=== PATIENT | female | born 2000 | race Caucasian/White ===

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

== ENCOUNTER 2021-07-20 02:33 | Emergency (ER) | payer OTHER ==
[~2021-07-20] VITALS: Ht 160 cm; Wt 56.6 kg
[~2021-07-20 02:33] MED LIST changes: +HYOS0.1283 SL; +ONDA4TAB8 PO
[2021-07-20 04:28] LABS: BASOPHILS # (AUTO) 0.1 10^3/uL (0.0-0.1); HEMOGLOBIN 11.2 g/dL (11.5-16.0); MEAN CORPUSCULAR HGB CONC 32 g/dL (32-36); NEUTROPHILS % (AUTO) 67 % (42-75)
[2021-07-20 04:29] LABS: BASOPHILS % (AUTO) 1 % (0-10); EOSINOPHILS # (AUTO) 0.1 10^3/uL (0.0-0.3); EOSINOPHILS % (AUTO) 1 % (0-10); HEMATOCRIT 36 % (35-52); LYMPHOCYTES # (AUTO) 1.9 10^3/uL (1.0-4.0); LYMPHOCYTES % (AUTO) 21 % (12-44); MEAN CORPUSCULAR HEMOGLOBIN 20 pg (25-34); MEAN CORPUSCULAR VOLUME 65 fL (80-99); MONOCYTES # (AUTO) 0.9 10^3/uL (0.0-1.0); MONOCYTES % (AUTO) 10 % (0-12); NEUTROPHILS # (AUTO) 6.3 10^3/uL (1.8-7.8); PLATELET COUNT 170 10^3/uL (130-400); WHITE BLOOD COUNT 9.3 10^3/uL (4.3-11.0)
[2021-07-20 04:30] LABS: ALBUMIN 4.5 GM/DL (3.2-4.5); POTASSIUM 4.2 MMOL/L (3.6-5.0)
[2021-07-20 04:31] LABS: CALCIUM 9.5 MG/DL (8.5-10.1)
[2021-07-20 04:33] LABS: TOTAL PROTEIN 7.2 GM/DL (6.4-8.2)
[2021-07-20 04:34] LABS: BILIRUBIN,TOTAL 0.9 MG/DL (0.1-1.0)
[2021-07-20 04:36] LABS: CREATININE SERUM 0.74 MG/DL (0.60-1.30)
[2021-07-20 04:40] LABS: BILIRUBIN,URINE NEGATIVE (NEGATIVE); CLARITY,URINE SL CLOUDY; COLOR,URINE YELLOW; GLUCOSE, URINE (UA) NEGATIVE (NEGATIVE); KETONES,URINE NEGATIVE (NEGATIVE); LEUKOCYTE ESTERASE ,URINE NEGATIVE (NEGATIVE); NITRITE,URINE NEGATIVE (NEGATIVE); PROTEIN,URINE NEGATIVE (NEGATIVE)
[2021-07-20 04:46] LABS: BACTERIA,URINE TRACE /HPF; WBC,URINE 0-2 /HPF
[2021-07-20] MEDS ORDERED: ONDANSETRON 4 MG/2 ML (SDV) Z0FRAN IVP ONE ×2 (05:15→08:30)
[2021-07-20] MEDS ORDERED: ANTACID SUSP 30 ML UDC (MYLANTA) PO ONE (05:15)
[2021-07-20] MEDS ORDERED: LIDOCAINE 2% VISCOUS 15 ML UDC PO ONE (05:15)
--- NOTE | 2021-07-20 05:44 | ED Abdominal Pain ---
General Chief Complaint: Abdominal/GI Problems Stated Complaint: GALLBLADDER PAIN & BACK PAIN Nursing Triage Note: Pt arrives per POV w/ parent w/ c/o upper epigastric pain that started @ approximately 0030 this morning. Pt also c/o nausea. Source of Information: Patient Exam Limitations: No Limitations (MELLISA LONGORIA MD) History of Present Illness Date Seen by Provider: Jul 20, 2021 Time Seen by Provider: 04:16 Initial Comments This 20-year-old young lady presents to the emergency room with complaints of epigastric pain that radiates to her right upper back. She has been having intermittent episodes for about a year. She has associated nausea. She most recently developed an episode of this pain after eating a cheeseburger last night. She denies constipation or diarrhea. She did try taking Tums when her pain started tonight but it did not help. She reports pain presently as 4 out of 10. She denies any urinary or vaginal symptoms. Her primary care is the [facility]. Symptoms seem to be exacerbated by fatty or greasy foods . (MELLISA LONGORIA MD) Allergies and Home Medications Allergies Coded Allergies: No Known Drug Allergies (Unverified , 02/25/13) Patient Home Medication List Home Medication List Reviewed: Yes (MELLISA LONGORIA MD) Azithromycin (Zithromax Tab) 250 Mg Tab, 250 MG PO DAILY, (Reported) Entered as Reported by: LAUREN ABDULLAHI on 02/07/141916 Benzonatate (Tessalon Perles) 100 Mg Capsule, 100 MG PO Q4H PRN for COUGH, (Reported) Entered as Reported by: LAUREN ABDULLAHI on 02/07/141916 Budesonide (Pulmicort Flexhaler) 90 Mcg Aer.pow.ba, 90 MCG IH BID, (Reported) Entered as Reported by: LAUREN ABDULLAHI on 02/07/141916 Hyoscyamine Sulfate (Levsin-Sl) 0.125 Mg Tab.subl, 1-2 TAB SL Q4H Prescribed by: MILIND IBANEZ on 05/27/172215 Ketorolac Tromethamine (Ketorolac Tromethamine) 10 Mg Tablet, 10 MG PO TID PRN for PAIN-BREAKTHROUGH Prescribed by: STACEY RUCKER on 07/20/21 0819 Ondansetron (Zofran Odt) 4 Mg Tab.rapdis, 4 MG PO Q4H Prescribed by: MILIND IBANEZ on 05/27/17 2216 Ondansetron (Ondansetron Odt) 4 Mg Tab.rapdis, 4 MG PO Q6H PRN for NAUSEA/VOMITING Prescribed by: STACEY RUCKER on 07/20/21 0819 Prednisone (Prednisone) 10 Mg Tablet, 30 MG PO BID, (Reported) Entered as Reported by: LAUREN ABDULLAHI on 02/07/141916 Review of Systems Review of Systems Constitutional: no symptoms reported EENTM: No Symptoms Reported Respiratory: No Symptoms Reported Cardiovascular: No Symptoms Reported Gastrointestinal: See HPI Genitourinary: No Symptoms Reported Musculoskeletal: no symptoms reported Skin: no symptoms reported Psychiatric/Neurological: No Symptoms Reported Endocrine: No Symptoms Reported Hematologic/Lymphatic: No Symptoms Reported (MELLISA LONGORIA MD) Past Uqmkgmi-Xzxvas-Psuqek Hx Patient Social History Tobacco Use?: No Substance use?: No Alcohol Use?: Yes Alcohol Frequency: Once in a while (MELLISA LONGORIA MD) Immunizations Up To Date Influenza Vaccine Up-to-Date: Yes; Up-to-Date First/Initial COVID19 Vaccinat: J&J (MELLISA LONGORIA MD) Past Medical History Surgeries: No Respiratory: No Cardiac: No Neurological: No Reproductive Disorders: No Female Reproductive Disorders: Denies Sexually Transmitted Disease: No Genitourinary: No Gastrointestinal: No Musculoskeletal: No Endocrine: No HEENT: No Cancer: No Psychosocial: No Integumentary: No Blood Disorders: No Adverse Reaction/Blood Tranf: No (MELLISA LONGORIA MD) Physical Exam Vital Signs Vital Signs - First Documented 07/20/21 03:19 Temp 36.6 Pulse 107 Resp 20 B/P (MAP) 126/84 (98) Pulse Ox 100 O2 Delivery Room Air (STACEY RUCKER) Vital Signs Capillary Refill : Less Than 3 Seconds (MELLISA LONGORIA MD) Height/Weight/BMI Height: 5'2.00" Weight: 108lbs. oz. 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, no motor/sensory deficits, alert, normal mood/affect, oriented x 3 Skin: normal color, warm/dry (MELLISA LONGORIA MD) Progress/Results/Core Measures Results/Orders Lab Results Laboratory Tests Test 07/20/21 03:45 07/20/21 03:48 Range/Units White Blood Count 9.3 4.3-11.0 10^3/uL Red Blood Count 5.49 H 3.80-5.11 10^6/uL Hemoglobin 11.2 L 11.5-16.0 g/dL Hematocrit 36 35-52 % Mean Corpuscular Volume 65 L 80-99 fL Mean Corpuscular Hemoglobin 20 L 25-34 pg Mean Corpuscular Hemoglobin Concent 32 32-36 g/dL Red Cell Distribution Width 15.1 H 10.0-14.5 % Platelet Count 170 130-400 10^3/uL Mean Platelet Volume 9.0-12.2 fL Immature Granulocyte % (Auto) 1 % Neutrophils (%) (Auto) 67 42-75 % Lymphocytes (%) (Auto) 21 12-44 % Monocytes (%) (Auto) 10 0-12 % Eosinophils (%) (Auto) 1 0-10 % Basophils (%) (Auto) 1 0-10 % Neutrophils # (Auto) 6.3 1.8-7.8 10^3/uL Lymphocytes # (Auto) 1.9 1.0-4.0 10^3/uL Monocytes # (Auto) 0.9 0.0-1.0 10^3/uL Eosinophils # (Auto) 0.1 0.0-0.3 10^3/uL Basophils # (Auto) 0.1 0.0-0.1 10^3/uL Immature Granulocyte # (Auto) 0.1 0.0-0.1 10^3/uL Percent Immature Platelet Fraction 16.5 H 0.0-7.6 % Sodium Level 139 135-145 MMOL/L Potassium Level 4.2 3.6-5.0 MMOL/L Chloride Level 108 H 98-107 MMOL/L Carbon Dioxide Level 18 L 21-32 MMOL/L Anion Gap 13 5-14 MMOL/L Blood Urea Nitrogen 9 7-18 MG/DL Creatinine 0.74 0.60-1.30 MG/DL Estimat Glomerular Filtration Rate 118 BUN/Creatinine Ratio 12 Glucose Level 105 70-105 MG/DL Calcium Level 9.5 8.5-10.1 MG/DL Corrected Calcium 9.1 8.5-10.1 MG/DL Total Bilirubin 0.9 0.1-1.0 MG/DL Aspartate Amino Transf (AST/SGOT) 19 5-34 U/L Alanine Aminotransferase (ALT/SGPT) 21 0-55 U/L Alkaline Phosphatase 56 40-136 U/L C-Reactive Protein High Sensitivity 0.27 0.00-0.50 MG/DL Total Protein 7.2 6.4-8.2 GM/DL Albumin 4.5 3.2-4.5 GM/DL Lipase 10 8-78 U/L Serum Test, Qualitative NEGATIVE NEGATIVE Urine Color YELLOW Urine Clarity SL CLOUDY Urine pH 6.0 5-9 Urine Specific [place] 1.020 1.016-1.022 Urine Protein NEGATIVE NEGATIVE Urine Glucose (UA) NEGATIVE NEGATIVE Urine Ketones NEGATIVE NEGATIVE Urine Nitrite NEGATIVE NEGATIVE Urine Bilirubin NEGATIVE NEGATIVE Urine Urobilinogen 0.2 < = 1.0 MG/DL Urine Leukocyte Esterase NEGATIVE NEGATIVE Urine RBC (Auto) NEGATIVE NEGATIVE Urine RBC NONE /HPF Urine WBC 0-2 /HPF Urine Squamous Epithelial Cells 2-5 /HPF Urine Crystals NONE /LPF Urine Bacteria TRACE /HPF Urine Casts NONE /LPF Urine Mucus NEGATIVE /LPF Urine Culture Indicated NO (STACEY RUCKER) My Orders Orders - STACEY RUCKER Ed Iv/Invasive Line Start (07/20/21 07:30) Ns Iv 500 Ml (Sodium Chloride 0.9%) (07/20/21 07:30) (STACEY RUCKER) Medications Given in ED Current Medications Medications Dose Ordered Sig/Ciro Route Start Time Stop Time Status Last Admin Dose Admin Al Hydrox/Mg Hydrox/Simethicone 30 ml ONCE ONCE PO 07/20/21 05:15 07/20/21 05:17 DC 07/20/21 05:30 30 ML Fentanyl Citrate 50 mcg ONCE ONCE IVP 07/20/21 06:15 07/20/21 06:16 DC 07/20/21 06:19 50 MCG Lidocaine HCl 15 ml ONCE ONCE PO 07/20/21 05:15 07/20/21 05:17 DC 07/20/21 05:31 15 ML Ondansetron HCl 4 mg ONCE ONCE IVP 07/20/21 05:15 07/20/21 05:17 DC 07/20/21 05:30 4 MG Sodium Chloride 500 ml @ 0 mls/hr Q0M ONCE IV 07/20/21 07:30 07/20/21 07:31 DC 07/20/21 07:39 500 MLS/HR (STACEY RUCKER) Vital Signs/I&O 07/20/21 03:19 Temp 36.6 Pulse 107 Resp 20 B/P (MAP) 126/84 (98) Pulse Ox 100 O2 Delivery Room Air (STACEY RUCKER) Blood Pressure Mean: 98 Progress Progress Note : Time: 06:17 Progress Note Lab work-up was unremarkable. Trial of GI cocktail did not improve her pain. Patient would like to proceed with a gallbladder ultrasound. This was ordered along with a dose of fentanyl to treat her pain in the meantime. Care is being transferred to Dr. Rucker at this time. (MELLISA LONGORIA MD) Progress Note #1: Progress Note Care of the patient assumed at shift change. Patient resting comfortably after her dose of fentanyl awaiting ultrasound. Last oral intake 1830 yesterday. 500 ml NS ordered to keep her NPO and address her thirst. Progress Note #2: Time: 07:59 Progress Note Reviewed case labs and ultrasound with Dr. SANDOVAL who agrees to follow the patient in the clinic. (STACEY RUCKER) Diagnostic Imaging Diagonstic Imaging: Ultrasound Plain Films/CT/US/NM/MRI: abdomen (GB) Comments No evidence of cholecystitis. Common bile duct normal. No evidence of cholelithiasis. No significant free fluid or inflammation surrounding the gallbladder. NAME: KELSI HERNANDEZ [facility] REC#: [id number] PT STATUS: REG ER : 2000 PHYSICIAN: MELLISA LONGORIA MD ADMIT DATE: 07/20/21/ER Signed Date of Exam:07/20/21 US GALLBLADDER [id number] PROCEDURE: US Gallbladder. TECHNIQUE: Multiple real-time grayscale images were obtained over the right upper quadrant in various projections. INDICATION: Epigastric pain. FINDINGS: Liver is normal in size. Hepatopetal flow in main portal vein. There is no biliary duct dilatation. Common bile duct measures 3 mm. There is no cholelithiasis, gallbladder wall thickening or pericholecystic fluid. The pancreas is unremarkable. Aorta is nonaneurysmal. IVC patent. Right kidney is normal. No ascites. IMPRESSION: Unremarkable right upper quadrant ultrasound. Dictated by: Dictated on workstation # [id number] Dict: 07/20/21800 Trans: 07/20/21813 CVB [id number] Interpreted by: SARA GILL MD Electronically signed by: SARA GILL MD 07/20/21813 Reviewed: Reviewed by Me (STACEY RUCKER) Departure Impression Primary Impression: Recurrent biliary colic Disposition: HOME, SELF-CARE Condition: Stable Departure-Patient Inst. Decision time for Depature: 07:59 (STACEY RUCKER) Referrals: MALLIKA SANDOVAL MD [facility] (PCP) Primary Care Physician Patient Instructions: Gallbladder Diet Add. Discharge Instructions: Your gallbladder does not appear infected nor do you have significant stones. It may certainly be the source of your symptoms. I encourage you to follow-up with Dr. SANDOVAL, general surgery in the clinic by calling for an appointment. He can review your findings and help you manage your symptoms as well as discuss po tential elective surgery if indicated. Try to avoid greasy, dairy, spicy foods. Stick to high-fiber foods as this will decrease your symptoms. Omeprazole 20 mg daily to help reduce stomach acid and reduce your symptoms intensity. Zofran 1 tablet every 6 hours as necessary for nausea and/or vomiting. Tylenol 1000 mg every 8 hours as needed for pain. Instead of ibuprofen or Aleve you may use the ketorolac 10 mg every 8 hours as needed for pain. Return to the ER for fever, intractable nausea/vomiting or pain. All discharge instructions reviewed with patient and/or family. Voiced understanding. Scripts Hydrocodone/Acetaminophen (Hydrocodone-Acetamin 5-325 mg) 1 Each Tablet 1 TAB PO Q6H PRN for PAIN-MODERATE (5-7), #8 TAB 0 Refills Prov: STACEY RUCKER 07/20/21 Ketorolac Tromethamine (Ketorolac Tromethamine) 10 Mg Tablet 10 MG PO TID PRN for PAIN-BREAKTHROUGH for 5 Days, #15 TAB 0 Refills Prov: STACEY RUCKER 07/20/21 Ondansetron (Ondansetron Odt) 4 Mg Tab.rapdis 4 MG PO Q6H PRN for NAUSEA/VOMITING, #12 TAB 0 Refills Prov: STACEY RUCKER 07/20/21 Copy Copies To 1: MALLIKA SANDOVAL MD, JOSHUA T MD Jul 20, 2021 05:44 STACEY RUCKER Jul 20, 2021 07:30
[2021-07-20] MEDS ORDERED: fentaNYL INJ 100 MCG/2 ML AMP IVP ONE (06:15)
[2021-07-20] MEDS ORDERED: NS IV 500 ML 500 ML IV ONE (07:30)
--- NOTE | 2021-07-20 08:07 | Diagnostic Imaging Report ---
PROCEDURE: US Gallbladder. TECHNIQUE: Multiple real-time grayscale images were obtained over the right upper quadrant in various projections. INDICATION: Epigastric pain. FINDINGS: Liver is normal in size. Hepatopetal flow in main portal vein. There is no biliary duct dilatation. Common bile duct measures 3 mm. There is no cholelithiasis, gallbladder wall thickening or pericholecystic fluid. The pancreas is unremarkable. Aorta is nonaneurysmal. IVC patent. Right kidney is normal. No ascites. IMPRESSION: Unremarkable right upper quadrant ultrasound. Dictated by: Dictated on workstation # [id number]
[2021-07-20] MEDS ORDERED: KETO10TA PO (08:19)
[2021-07-20] MEDS ORDERED: ACHD5005 PO (08:19)
[2021-07-20] MEDS ORDERED: ONDA4TAB11 PO (08:19)
[2021-07-20 08:31] VITALS: BP 117/72
== END 2021-07-20 08:33 | disposition home or self-care (01) ==
LOC: EDUNIT# 02:33 → ER 02:38
DX: K80.50 Calculus of bile duct without cholangitis or cholecystitis without obstruction (principal)
CPT/HCPCS: 36415; 76705; 80053; 81000; 83690; 84703; 85025; 86141

== ENCOUNTER 2021-07-26 10:31 | Day surgery (SDC) | payer OTHER ==
[~2021-07-26] VITALS: Ht 160 cm; Wt 56.6 kg
[2021-07-26] VITALS (11 sets, daily range): BP systolic 106–129; BP diastolic 54–83
[~2021-07-26 10:31] MED LIST changes: +ACHD5005 PO; +KETO10TA PO; +ONDA4TAB11 PO
[2021-07-26] MEDS: LACTATED RINGERS 1,000 ML IV PRN ×2 (11:00→13:21)
[2021-07-26] MEDS ORDERED: LIDOCAINE/EPI 1%-1:200,000 (XYLOCAINE) 30 ML VIAL ONE (12:30)
--- NOTE | 2021-07-26 12:30 | Progress Note-Pre Operative ---
Pre-Operative Progress Note H&P Reviewed The H&P was reviewed, patient examined and no changes noted. Date Seen by Provider: Jul 26, 2021 Time Seen by Provider: 12:30 Date H&P Reviewed: Jul 26, 2021 Time H&P Reviewed: 12:25 Pre-Operative Diagnosis: Symptomatic Biliary Dyskinesia WALTER ROONEY APRN Jul 26, 2021 12:30
[2021-07-26] MEDS ORDERED: HYDR-3817 PO (12:32)
--- NOTE | 2021-07-26 12:32 | Discharge Inst-Surgical ---
D/C Lap Instructions-KIDO Reconcile Patient Problems Problems Reviewed?: Yes New, Converted, or Re-Newed RX: RX on Chart Follow Up Appt in 2 weeks Activity as tolerated No driving for 24 hours No driving while on pain medications Incentive Spirometry use every 2 hours while awake Regular Diet Symptoms to Report: Fever over 101 degree F, Nausea/Vomiting Infection Signs and Symptoms to report: Increased redness, Foul odor of wound, Increased drainage Bathing instructions: May shower Operative Area Clean/Dry; Keep incision clean/dry If any problems/questions: Contact your physician or go to Emergency Room WALTER ROONEY APRN Jul 26, 2021 12:32
[2021-07-26] MEDS ORDERED: ceFAZolin INJECTION 1,000 MG ONE (12:42)
[2021-07-26] MEDS ORDERED: ACETAMINOPHEN 325 MG TABLET PO PRN (12:45)
[2021-07-26] MEDS ORDERED: ONDANSETRON 4 MG/2 ML (SDV) Z0FRAN IVP PRN ×2 (12:45→14:15)
[2021-07-26] MEDS ORDERED: morphine INJ 10 MG/ML 1ML (SYR OR VIAL) IVP PRN (12:45)
[2021-07-26] MEDS ORDERED: HYDROcodone/APAP 5 MG/325 MG (LORTAB) TAB PO ONE (12:45)
[2021-07-26] MEDS ORDERED: fentaNYL INJ 100 MCG/2 ML AMP ONE ×2 (12:48→13:44)
[2021-07-26] MEDS ORDERED: MIDAZOLAM 2 MG/2 ML (VERSED) VIAL ONE (12:48)
[2021-07-26] MEDS ORDERED: ONDANSETRON 4 MG/2 ML (SDV) Z0FRAN ONE (13:21)
[2021-07-26] MEDS ORDERED: proPOfol 200 MG/20 ML (DIPRIVAN) VIAL IV ONE (13:21)
[2021-07-26] MEDS ORDERED: LIDOCAINE PF 2% 5 ML (XYLOCAINE) VIAL ONE (13:21)
[2021-07-26] MEDS ORDERED: ROCURONIUM 10 MG/ML 5 ML SYRINGE IV ONE (13:21)
--- NOTE | 2021-07-26 13:52 | Progress Note-Post Operative ---
Post-Operative Progess Note Surgeon (s)/Tractor Operator (s) Surgeon MALLIKA SANDOVAL MD Tractor Operator: rafael goins [employer] Pre-Operative Diagnosis Symptomatic Biliary Dyskinesia Post-Operative Diagnosis same Procedure & Operative Findings Date of Procedure 07/26/21 Procedure Performed/Findings laparoscopic cholecystectomy Anesthesia Type get Estimated Blood Loss Estimated blood loss (mL): mininimal Specimens/Packing Specimens Removed gallbladder MALLIKA SANDOVAL MD Jul 26, 2021 13:52
[2021-07-26] MEDS ORDERED: GLYCOPYRROLATE 0.2 MG/ML (ROBINUL) 2 ML VIAL ONE (13:57)
[2021-07-26] MEDS ORDERED: NEOSTIGMINE 3 MG/3 ML VIAL ONE (13:57)
[2021-07-26] MEDS ORDERED: SEVOFLURANE (ULTANE) 15 ML INHAL SOLN ONE (13:57)
--- NOTE | 2021-07-26 14:12 | Anesthesia-General Post-Op ---
General Patient Condition Mental Status/LOC: Same as Preop Cardiovascular: Satisfactory Nausea/Vomiting: Absent Respiratory: Satisfactory Pain: Controlled Complications: Absent Post Op Complications Complications None Follow Up Care/Instructions Patient Instructions None needed. Anesthesia/Patient Condition Patient Condition Patient is doing well, no complaints, stable vital signs, no apparent adverse anesthesia problems. No complications reported per nursing. LEESA QUISPE CRNA Jul 26, 2021 14:12
[2021-07-26] MEDS ORDERED: fentaNYL INJ 100 MCG/2 ML AMP IVP ONE (14:15)
[2021-07-26] MEDS ORDERED: HYDROmorphone 2 MG/ML VIAL (DILAUDID) IV ONE (14:15)
[2021-07-26] MEDS ORDERED: HYDROcodone/APAP 5 MG/325 MG (LORTAB) TAB ONE (15:25)
--- NOTE | 2021-07-26 19:11 | OPERATIVE REPORT ---
DATE OF SERVICE: 07/26/2021 ATTENDING PRIMARY CLAIMS VICE PRESIDENT: [facility]. PREOPERATIVE DIAGNOSIS: Symptomatic biliary dyskinesia. POSTOPERATIVE DIAGNOSIS: Symptomatic biliary dyskinesia. PROCEDURE: Laparoscopic cholecystectomy. SURGEON: Mallika Sandoval MD THIRD RIGGER: Vasu Gomez APRN ANESTHESIA: General endotracheal. ESTIMATED BLOOD LOSS: Minimal. FINDINGS: Distended gallbladder. DISPOSITION: The patient tolerated the procedure well. INDICATIONS: The patient is a 20-year-old female who has had issues with right upper abdominal quadrant pain with associated nausea, abdominal bloating and sometimes vomiting and diarrhea for the past 2 years; however, this has become much more frequent as well as much more severe in the past several months. She underwent an ultrasound, which did not show any gallstones and then underwent HIDA scan and did have a severe reproduction of symptoms with abdominal bloating, nausea and vomiting and pain in the right upper abdominal quadrant after the administration of the Kinevac analogue. DESCRIPTION OF PROCEDURE: The patient was brought to the operating room, laid supine on the table. After adequate IV pain and sedative medications and general endotracheal intubation, the abdomen was prepped and draped in standard surgical fashion. A 0.5% Marcaine with epinephrine was used to anesthetize the overlying skin left upper abdominal quadrant and transverse skin incision made using 15 blade. An 0 silk suture was applied to the medial aspect incision for retraction and a Veress needle inserted with a low opening pressure of 0 mmHg. The abdomen was then insufflated to 15 mmHg pressure. The Veress needle removed and a 5 mm XL trocar placed followed by a 5 mm 45-degree angle laparoscope visualizing the peritoneal cavity. A 4-quadrant abdominal exploration was performed. There was a slightly distended gallbladder, no gallbladder wall thickening. Under direct visualization, we then proceeded to place a supraumbilical 10 mm port after the skin and peritoneal lining were anesthetized using 0.5% Marcaine with epinephrine and a transverse skin incision made using 15 blade. In a similar manner, a right upper abdominal quadrant 5 mm port was placed. The patient was then placed in a reverse Trendelenburg position as well as plane right side up, left side down and the fundus of the gallbladder retracted anteriorly and superiorly. The hepatoduodenal ligament was then dissected opened using blunt dissection as well as electrocautery using the hook instrument as well as the [place] dissector. The entire critical view of safety was identified including the triangle of Calot as well as the cystic duct and artery as the only two structures going to gallbladder as well as the cystic plate behind the proximal gallbladder. A timeout was then taken and the cystic duct and artery were then clipped proximally and distally and cut with EndoShears. The gallbladder was then dissected off the liver bed using cautery on hook instrument with visualization of good hemostasis as well as no leaking ducts of Luschka. The gallbladder was removed through the 10 mm port site using an EndoCatch bag. The 10 mm port site fascia and peritoneum were then closed under direct visualization using a Remington-Pushpa device and 0 Vicryl suture. The abdomen was desufflated and remaining ports removed. All skin incisions were closed using 4-0 Monocryl running subcuticular sutures. Wounds were then cleaned and covered with Dermabond. The patient tolerated the procedure well. We will start IV normal pain medication as well as a clear liquid diet. When she is tolerating clears, has good pain control with oral pain medications, ambulating well, we will discharge her home where she will be instructed to do no heavy lifting or exertion for the next two weeks. Job ID: [id number] DocumentID: [id number] Dictated Date: 07/26/2021 14:04:52 Inbound Telemarketer Date: 07/26/2021 19:10:28 Dictated By: MALLIKA SANDOVAL MD
== END 2021-07-26 16:15 | disposition home or self-care (01) ==
LOC: SDC 10:31
PROVIDERS: ATTEND Surgery
DX: K82.8 Other specified diseases of gallbladder (principal); K81.1 Chronic cholecystitis
CPT/HCPCS: 84703; 87081; 88304; 94664